=== PATIENT | female | born 1960 | race Caucasian/White ===

== ENCOUNTER 2016-09-22 14:40 | Emergency (ER) | payer OTHER ==
[~2016-09-22] VITALS: Ht 147.3 cm; Wt 59.9 kg
[~2016-09-22 14:40] MED LIST: KEFLEX250 M1 PO; REGLAN10 MG PO
--- NOTE | 2016-09-22 16:02 | ED GENERAL ADULT ---
History of Present Illness General Chief Complaint: General Adult Stated Complaint: FLU S/S Source: patient Exam Limitations: no limitations Vital Signs & Intake/Output Vital Signs & Intake/Output Vital Signs Date Time Temp Pulse Resp B/P Pulse O2 O2 Flow FiO2 Ox Delivery Rate 09/22 1445 98.2 96 18 122/81 96 Room Air Allergies Coded Allergies: cetirizine (From [facility]) (Severe, ANGIODEMA 12/26/15) codeine (ITCHING 12/26/15) meperidine (ITCHING 12/26/15) morphine (ALTERED PERSONALITY 09/22/16) oxycodone (UNKNOWN 12/26/15) Reconcile Medications Amoxicillin/Potassium Clav (Augmentin 875-125 Tablet) 875 MG-125 MG TABLET 1 TAB PO BID SINUSITIS Doxycycline Hyclate 100 MG CAPSULE 1 CAP PO BID ANTIBIOTIC (Reported) Mometasone Furoate (Nasonex) 50 MCG SPRAY.PUMP 2 SPRAY NASB DAILY PRN SINUSITIS Simvastatin (Zocor*) 20 MG TABLET 1 TAB PO QPM CHOLESTEROL (Reported) Triage Note: C/O COUGH, CHILLS, NAUSEA, HEADACHE AND CHEST DISCOMFORT X 2 DAYS. HAS BEEN ON OXYCYCLINE INTERMITTATNLY X A FEW MONTHS FOR A DENTAL INFECTION (IMPLANT). Triage Nurses Notes Reviewed? yes Onset: Gradual Duration: worse persistent since (3 DAYS) Timing: recent history Injury Environment: home Severity: moderate Severity Numbers: 7 Modifying Factors: Worsens With: other (LIGHT). HPI: Patient is a 56-year-old female with history of migraines, recent dental infection currently on doxycycline presenting to the emergency department with chief complaint of sinus pressure, pain, worsening headaches, body aches, bilateral neck pain over the past 2-3 days. She reports tactile fevers and chills. Denies any nausea or vomiting. No visual changes but she does report that she is sensitive to light. She has not been taking her Imitrex over the past several days because she is on medication for her dental infection and didn 't want to mix the 2. Denies any abdominal pain. No recent travel. Denies sick contacts. She reports that she had the flu in May. She reports that she was having chest pain the other day, she felt anxious at the same time so she was unsure if it is related to anxiety. She reports that she is not here for pain medication. This is not the worse headache she's ever had but reports that is different. (YANCY ESTES) Past History Travel History Traveled to [place] past 21 day No Medical History Any Pertinent Medical History? see below for history Neurological: migraine Influenza Vaccine: 08/13/06 Tetanus Vaccine: 12/26/15 Surgical History Surgical History: non-contributory Psychosocial History Services at Home None What is your primary language Puerto Rican Tobacco Use: Current Daily Use Daily Tobacco Use Amount/Type: => 5 Cigarettes daily ETOH Use: denies use Family History Hx Contributory? No (YANCY ESTES) Review of Systems Review of Systems Constitutional: Reports: malaise. Comments Review of systems: See HPI, All other systems negative. Constitutional, no chills or weight loss HEENT: No visual changes no sore throat Cardiovascular: No palpitation , orthopnea or ankle swelling Skin, no jaundice no rashes Respiratory: No dyspnea cough sputum or hemoptysis GI: No nausea no vomiting : No dysuria No hematuria Muscle skeletal: no back pain Neurologic: No numbness no confusion Psych: No stress anxiety or depression,. Heme/endocrine: No bruising no bleeding no polyuria or polydipsia Immunology: No splenectomy or history of AIDS (YANCY ESTES) Physical Exam Physical Exam General Appearance: no apparent distress, alert, awake, comfortable, FATIGUED Comments: Well-developed well-nourished person in no acute distress, appears fatigued. HEENT: Normal EENT exam, extraocular motion intact, no nystagmus. Pupils equally round and reactive to light and accommodation. Nose is atraumatic. External auditory canal clear bilaterally, tympanic membranes appear congested bilaterally. Mild erythema noted in the right tympanic membrane. Pharynx is mildly erythematous, no exudate, clearing secretions without difficulty. Uvula midline. No swelling or edema. Mild edema noted to the right maxillary sinus. Tender to palpation over the right maxillary sinus. No obvious dental abscess. Neck: Supple, no lymphadenopathy, normal range of motion without pain or tenderness, no meningeal signs. Negative Brudzinski's, negative Kernig. Back: Nontender, no CVA tenderness. Full range of motion Cardiovascular: Regular rate and rhythms no murmurs rubs or gallops, normal JVP Respiratory: Chest nontender. No respiratory distress.breath sounds clear to auscultation bilaterally Abdomen: Soft, nontender nondistended, no appreciable organomegaly. Normal bowel sounds. No ascites Extremity: No edema, no calf tenderness to palpation, normal and equal pulses. Neuro: Alert oriented x3, motor sensory normal, cranial nerves II through XII grossly intact. Skin: No appreciable rash on exposed skin, skin is warm and dry. Psych: Mood and affect is normal, memory and judgment is normal. Core Measures ACS in differential dx? No CVA/TIA Diagnosis: No Severe Sepsis Present: No Septic Shock Present: No (YANCY ESTES) Progress Differential Diagnoses I considered the following diagnoses in my evaluation of the patient: Electrolyte abnormality, viral syndrome, acute on chronic sinusitis, worsening dental infection, ACS, anxiety, migraine headache, meningitis Plan of Care: Orders Procedure Date/time Status Add-on Test (ER Only) 09/22 1702 Active Add-on Test (ER Only) 09/22 1617 Active URINALYSIS 09/22 1602 Complete TROPONIN LEVEL 09/22 1602 Complete WESTERGREN SED RATE 09/22 1602 Complete C-REACTIVE PROTEIN 09/22 1602 Complete COMPREHENSIVE METABOLIC PANEL 09/22 1602 Complete CBC WITHOUT DIFFERENTIAL 09/22 1602 Complete EKG 09/22 1447 Active Laboratory Tests 09/22/16 1635: Urine Color YEL, Urine Clarity CLEAR, Urine pH 7.5, Ur Specific [place] 1.015, Urine Protein NEG, Urine Ketones NEG, Urine Nitrite NEG, Urine Bilirubin NEG, Urine Urobilinogen 0.2, Ur Leukocyte Esterase NEG, Ur Microscopic EXAM NOT REQUIRED, Urine Hemoglobin NEG, Urine Glucose NEG 09/22/16 1623: Anion Gap 9, Estimated GFR > 60, BUN/Creatinine Ratio 13.3, Glucose 102 H, Calcium 8.8, Total Bilirubin 0.5, AST 73 H, ALT 128 H, Alkaline Phosphatase 114, Troponin I < 0.01, C-Reactive Prot, Quant 0.8, Total Protein 6.9, Albumin 4.0, Globulin 2.9, Albumin/Globulin Ratio 1.4, CBC w Diff NO MAN DIFF REQ, RBC 4.17 L, MCV 90.4, MCH 31.2 H, RDW 12.8, MPV 9.6, Gran % 63.1, Lymphocytes % 21.8, Monocytes % 12.9 H, Eosinophils % 1.5, Basophils % 0.7, Absolute Granulocytes 2.9, Absolute Lymphocytes 1.0 L, Absolute Monocytes 0.6, Absolute Eosinophils 0.1, Absolute Basophils 0, PUBS MCHC 34.5, ESR Westergren 34 H Diagnostic Imaging: Viewed by Me: CT Scan. Discussed w/RAD: CT Scan. Radiology Impression: PATIENT: EVIE FUCHS PRESENT AGE: 56 PATIENT ACCOUNT NO: [id number] : 61 LOCATION: [facility] [place] ORDERING PHYSICIAN: YANCY ALMAGUER SERVICE DATE: 09/22/16 EXAM TYPE: CAT - CT HEAD WO IV CONTRAST; CT MAXILLOFACIAL W/O CON EXAMINATION: CT HEAD WITHOUT CONTRAST CLINICAL INFORMATION: Worsening headaches. COMPARISON: CT brain dated 07/15/2014. TECHNIQUE: Contiguous axial imaging was performed from the skull base to vertex without intravenous administration of contrast. DLP: 1259.37 mGy- cm (head and facial bones) FINDINGS: There is no evidence of acute intracranial hemorrhage or territorial infarction. No abnormal mass effect or midline shift is seen. Billingsley to white matter differentiation is well preserved. No extra-axial fluid collections are identified. The ventricles are normal in size. There is no abnormal attenuation within the brain parenchyma. The osseous structures and soft tissues are normal. There is very mild right maxillary sinusitis. The visualized paranasal sinuses and mastoid air cells appear clear. IMPRESSION: No acute intracranial pathology. EXAMINATION: CT MAXILLOFACIAL WITHOUT CONTRAST CLINICAL INFORMATION: Chronic sinusitis. COMPARISON: None TECHNIQUE: Multidetector helical imaging was performed in the axial plane with generation of coronal and sagittal reformatted images. FINDINGS: FRONTAL SINUSES AND DRAINAGE PATHWAYS: Normal. MAXILLARY SINUSES AND DRAINAGE PATHWAYS: There is very mild right maxillary sinusitis. The left maxillary sinus appears clear. ETHMOID SINUSES: There is very mild anterior right ethmoid sinusitis. The left ethmoid air cells appear clear. SPHENOID SINUSES AND DRAINAGE PATHWAYS: Normal. ADDITIONAL RELEVANT FINDINGS: The ostiomeatal complexes are well-aerated. The lamina papyracea are intact. The nasal passages are clear. There is a mild rightward nasal septal deviation. The carotid canals are normally covered by bone. The ethmoid roofs are symmetric. No periapical disease is seen. The TMJs and orbits are normal. The visualized mastoid air cells are clear. Limited evaluation demonstrates no acute intracranial findings. IMPRESSION: 1. There is mild right ethmoid and maxillary sinusitis. 2. The ostiomeatal units are patent bilaterally. 3. There is a mild rightward nasal septal deviation. Initial ED EKG: NSR (NORMAL SINUS RHYTHM AT 93 BPM) Prior EKG: unchanged Comments: Patient given IV fluids, Toradol, Zofran, and Solu-Medrol on arrival for headaches. Patient also having some mild swelling and sinus tenderness to palpation over the right maxillary sinus. Patient is afebrile. No meningeal signs. CT SHOWS SINUSITIS. FOLLOW UP WITH ENT. (YANCY ESTES) Departure Departure Time of Disposition: 1758 Disposition: HOME OR SELF CARE Condition: Stable Clinical Impression Primary Impression: Sinusitis Referrals: FIFI SIMPSON,AMI Felipe (PCP/Family) Additional Instructions: Follow-up with your primary care physician. YOU WERE also given ENT to follow- up with as well. Departure Forms: Customer Survey General Discharge Information Prescriptions: Current Visit Scripts Amoxicillin/Potassium Clav (Augmentin 875-125 Tablet) 1 TAB PO BID #20 TAB Mometasone Furoate (Nasonex) 2 SPRAY NASB DAILY PRN SINUSITIS #1 INHAL (YANCY ESTES) PA/CLINICAL RESEARCH ASSOCIATE Co-Sign Statement Statement: ED Attending supervision documentation- [] I saw and evaluated the patient. I have also reviewed all the pertinent lab results and diagnostic results. I agree with the findings and the plan of care as documented in the PA's/CLINICAL RESEARCH ASSOCIATE's documentation. [X] I have reviewed the ED Record and agree with the PA's/CLINICAL RESEARCH ASSOCIATE's documentation. [] Additions or exceptions (if any) to the PAs/CLINICAL RESEARCH ASSOCIATE's note and plan are summarized below: [] (SADIA SIMPSON,POONAM) Critical Care Note Critical Care Note Critical Care Time: non-applicable (YANCY ESTES)
[2016-09-22 16:49] LABS: ABSOLUTE BASOPHIL COUNT 0 /CUMM (0.0-0.2); ABSOLUTE EOSINOPHIL COUNT 0.1 /CUMM (0.0-0.7); ABSOLUTE GRANULOCYTE CT 2.9 /CUMM (1.4-6.5); ABSOLUTE MONOCYTE COUNT 0.6 /CUMM (0.10-0.60); BASOPHIL % 0.7 % (0.0-2.0); EOSINOPHIL % 1.5 % (0-5); GRANULOCYTE % 63.1 % (42.2-75.2); HEMATOCRIT 37.7 % (37-47); MEAN CORPUSCULAR HGB 31.2 PG (27.0-31.0); MEAN CORPUSCULAR HGB CONC 34.5 G/DL (33.0-37.0); MEAN CORPUSCULAR VOLUME 90.4 FL (81.0-99.0); MEAN PLATELET VOLUME 9.6 FL (7.4-10.4); PLATELET COUNT 156 /CUMM (130-400); RBC DISTRIBUTION WIDTH 12.8 % (11.5-14.5); RED BLOOD CELL CT 4.17 /CUMM (4.20-5.40); WHITE BLOOD CELL COUNT 4.6 /CUMM (4.8-10.8)
[2016-09-22] MEDS ORDERED: ZOCOR20 M1 PO (17:09)
[2016-09-22] MEDS ORDERED: DOXYCYCLINE HY100 M2 PO (17:09)
--- NOTE | 2016-09-22 17:56 | CT SCAN REPORT ---
EXAMINATION: CT HEAD WITHOUT CONTRAST CLINICAL INFORMATION: Worsening headaches. COMPARISON: CT brain dated 07/15/2014. TECHNIQUE: Contiguous axial imaging was performed from the skull base to vertex without intravenous administration of contrast. DLP: 1259.37 mGy-cm (head and facial bones) FINDINGS: There is no evidence of acute intracranial hemorrhage or territorial infarction. No abnormal mass effect or midline shift is seen. Billingsley to white matter differentiation is well preserved. No extra-axial fluid collections are identified. The ventricles are normal in size. There is no abnormal attenuation within the brain parenchyma. The osseous structures and soft tissues are normal. There is very mild right maxillary sinusitis. The visualized paranasal sinuses and mastoid air cells appear clear. IMPRESSION: No acute intracranial pathology. EXAMINATION: CT MAXILLOFACIAL WITHOUT CONTRAST CLINICAL INFORMATION: Chronic sinusitis. COMPARISON: None TECHNIQUE: Multidetector helical imaging was performed in the axial plane with generation of coronal and sagittal reformatted images. FINDINGS: FRONTAL SINUSES AND DRAINAGE PATHWAYS: Normal. MAXILLARY SINUSES AND DRAINAGE PATHWAYS: There is very mild right maxillary sinusitis. The left maxillary sinus appears clear. ETHMOID SINUSES: There is very mild anterior right ethmoid sinusitis. The left ethmoid air cells appear clear. SPHENOID SINUSES AND DRAINAGE PATHWAYS: Normal. ADDITIONAL RELEVANT FINDINGS: The ostiomeatal complexes are well-aerated. The lamina papyracea are intact. The nasal passages are clear. There is a mild rightward nasal septal deviation. The carotid canals are normally covered by bone. The ethmoid roofs are symmetric. No periapical disease is seen. The TMJs and orbits are normal. The visualized mastoid air cells are clear. Limited evaluation demonstrates no acute intracranial findings. IMPRESSION: 1. There is mild right ethmoid and maxillary sinusitis. 2. The ostiomeatal units are patent bilaterally. 3. There is a mild rightward nasal septal deviation.
[2016-09-22] MEDS ORDERED: NASONEX17 GM NASB (18:03)
[2016-09-22] MEDS ORDERED: AUGMENTIN 875-1 EACH PO (18:03)
[2016-09-22 18:10] VITALS: BP 120/80
== END 2016-09-22 18:10 ==
LOC: ERH 14:40
PROVIDERS: Physician Assistant
DX: J32.9 Chronic sinusitis, unspecified (principal); Z72.0 Tobacco use
CPT/HCPCS: 86317; 87798; 81003; 93005; 93010; 96374; 96375; J1885; J2405; J2930